=== PATIENT | female | born 1990 | race Caucasian/White ===

== ENCOUNTER 2021-06-28 13:56 | Outpatient (CLI) | payer MEDICAID, SELFPAY ==
[2021-06-29 22:07] LABS: Chlamydia By Nucleic Acid AMP Negative (Negative)
[2021-06-29 22:26] LABS: Gonococcus By Nucleic Acid AMP Negative (Negative)
[2021-07-04 09:31] LABS: HPV APTIMA, High Risk Negative (Negative)
== END 2021-06-28 23:59 | disposition home or self-care (01) ==
LOC: LABSPEC 13:57
PROVIDERS: Visit Provider Obstetrics & Gynecology
DX: Z12.4 Encounter for screening for malignant neoplasm of cervix (principal); Z11.3 Encounter for screening for infections with a predominantly sexual mode of transmission
CPT/HCPCS: 87491; 87591; 87624; 88175; G0145